=== PATIENT | female | born 1975 | race Caucasian/White ===

== ENCOUNTER 2024-06-13 09:41 | Day surgery (SDC) | payer OTHER, SELFPAY ==
--- NOTE | 2024-06-13 12:58 | ITS.CL.CARDI ---
[employer] Inspector - Cardioversion
Cardioversion
Procedure Report:
Procedure: TRACIE-guided electrical cardioversion
Pre-operative diagnosis: Persistent atrial fibrillation
Post-operative diagnosis: Persistent atrial fibrillation status post DC cardioversion to sinus rhythm
Anesthesia: MAC
Attending Physician: Christofer Bravo MD
Procedure Description: The patient was brought to the electrophysiology laboratory in the fasting state. Informed consent was obtained from the patient prior to the start of the procedure. Adherence to anticoagulation was confirmed. Electrodes were
placed on the patient and connected to an external defibrillator. Monitoring of blood pressure, ECG tracings, and pulse oximetry was initiated. The pads were applied to the patient in the anterior and posterior positions. The patient was sedated by
the anesthesiologist. A TRACIE (reported separately) was performed prior to the cardioversion. No left atrial or left atrial appendage thrombus was seen. After the TRACIE probe was removed, a 200 joule biphasic synchronized shock was delivered to the
patient under MAC anesthesia. Sinus rhythm was successfully restored. The patient recovered uneventfully from MAC anesthesia. There were no immediate post-procedure complications. The patient left the lab in good condition. The attending physician
was present throughout the entire procedure.
Impression: Successful TRACIE-guided direct current cardioversion with scientologist of sinus rhythm after one 200 joule biphasic synchronized shock.
== END 2024-06-13 12:30 | disposition home or self-care (01) ==
LOC: CATH 09:41
PROVIDERS: ATTENDING PHYSICIAN Internal Medicine Cardiovascular Disease; FAMILY PHYSICIAN Internal Medicine; OTHER PHYSICIAN Internal Medicine Cardiovascular Disease
DX: I48.19 Other persistent atrial fibrillation (principal); I08.3 Combined rheumatic disorders of mitral, aortic and tricuspid valves; I37.1 Nonrheumatic pulmonary valve insufficiency; I70.0 Atherosclerosis of aorta; I48.92 Unspecified atrial flutter; Z98.890 Other specified postprocedural states; Z79.01 Long term (current) use of anticoagulants
CPT/HCPCS: 93312; 93320; 93325; 92960; 93005

== ENCOUNTER → 2024-07-17 09:00 | Outpatient (REF) | payer OTHER, SELFPAY ==
[2024-07-17 11:04] VITALS: BMI 29.5
[2024-07-17 11:07] LABS: Hematocrit 27.5 % (37.0-47.0); Hemoglobin 8.7 g/dL (12.0-16.0); Mean Corp Hgb Conc. 31.6 g/dL (33.0-37.0); Mean Corpuscular Hgb 22.1 pg (27.0-31.0); Mean Corpuscular Volume 69.8 fL (81.0-99.0); Mean Platelet Volume 8.9 fL (7.4-10.4); Platelet Count 293 10^3/uL (130-400); Red Blood Cell Count 3.94 10^6/uL (4.20-5.40); Red Cell Dist. Width 19.8 % (11.5-14.5); White Blood Cell Count 3.3 10^3/uL (4.8-10.8)
[2024-07-17 11:17] LABS: INR 1.28; PT 16.1 Sec (11.4-14.6)
[2024-07-17 11:23] LABS: ALT (SGPT) 26 U/L (0-35); AST (SGOT) 27 U/L (14-36); Albumin 3.7 g/dl (3.5-5.0); Alkaline Phosphatase 70 U/L (38-126); Blood Urea Nitrogen 19 mg/dl (7-17); Calcium 8.8 mg/dl (8.4-10.2); Carbon Dioxide 26 mmol/L (22-30); Chloride 103 mmol/L (98-107); Estimated Creatinine Clearance 61 ml/min; Glucose 86 mg/dl (70-99); Magnesium 1.8 mg/dl (1.6-2.3); Potassium 4.2 mmol/L (3.5-5.1); Sodium 140 mmol/L (135-145); Total Bilirubin 0.3 mg/dl (0.2-1.3); Total Protein 6.5 g/dl (6.3-8.2); eGFR > 60.00
[2024-07-17 12:52] LABS: Iron 31 ug/dl (37-170)
[2024-07-17 13:02] LABS: Percent Saturation 7 % (20-50); Total Iron Binding Capacity 419 ug/dl (265-497)
[2024-07-17 13:17] LABS: % Basophils 0.3 % (0-2); % Eosinophils 4.9 % (0-6); % Lymphocytes 51.7 % (20.5-51.1); % Monocytes 11.1 % (1.7-9.3); Absolute Eosinophils 0.2 10^3/uL (0-0.7); Absolute Lymphocytes 1.7 10^3/uL (1.2-3.4); Absolute Monocytes 0.4 10^3/uL (0.1-0.6); Nucleated Red Blood Cells % 0 %
[2024-07-17 14:03] LABS: Ferritin 6.1 ng/ml (11.1-264.0)
--- NOTE | 2024-07-19 14:30 | W.PN.UPDATE ---
Update Note
Progress Note Update
Microcytic anemia. Iron studies added to labs.� Total iron low at 31.
Spoke to patient who states she does still menstruate, which is heavy�
on Xarelto.� She also states she has blood/black in her stool.� Have referred�
her to GI and to follow-up with her CHILDREN'S AIDE.� She denies having had prior�
colonoscopy.� Left voicemail for her PCP, who was results of bloodwork.��
�
== END ==
LOC: SDSPAT 09:00
PROVIDERS: ATTENDING PHYSICIAN Internal Medicine Cardiovascular Disease; FAMILY PHYSICIAN Family Medicine; OTHER PHYSICIAN Internal Medicine Cardiovascular Disease
DX: I48.91 Unspecified atrial fibrillation (principal); I48.92 Unspecified atrial flutter
CPT/HCPCS: 36415; 75572; 80053; 82728; 83540; 83550; 83735; 85025; 85610; 86850; 86870; 86900; 86901; 86905; 93005; Q9967

== ENCOUNTER → 2024-07-29 06:32 | Day surgery (SDC) | payer OTHER, SELFPAY | LOC: GI 06:32 | PROVIDERS: ATTENDING PHYSICIAN Internal Medicine Gastroenterology | DX: D50.9 Iron deficiency anemia, unspecified (principal); Q39.9 Congenital malformation of esophagus, unspecified; K29.50 Unspecified chronic gastritis without bleeding | CPT/HCPCS: 43239; 88305; 88342 ==

== ENCOUNTER 2024-07-31 06:18 | Day surgery (SDC) | payer OTHER, SELFPAY ==
[2024-07-31 08:40] VITALS: BMI 30.7
[2024-07-31 08:45] VITALS: BP 159/121
[2024-07-31 09:11] VITALS: BMI 30.7
[2024-07-31 10:32] VITALS: BP 126/106
[2024-07-31 10:45] VITALS: BP 127/113
[2024-07-31 10:54] VITALS: BP 153/110
== END 2024-07-31 11:05 | disposition home or self-care (01) ==
LOC: SDS 06:18
PROVIDERS: ATTENDING PHYSICIAN Internal Medicine Gastroenterology; FAMILY PHYSICIAN Internal Medicine
PROC: 0DJD8ZZ Inspection of Lower Intestinal Tract, Via Natural or Artificial Opening Endoscopic (ICD-10-PCS; 2024-07-31)
DX: D50.9 Iron deficiency anemia, unspecified (principal); K64.8 Other hemorrhoids
CPT/HCPCS: 45378